=== PATIENT | male | born 1950 | race African-American/Black ===

== ENCOUNTER 2016-12-09 11:24 | Emergency (ER) | payer OTHER, MEDICARE ==
[~2016-12-09] VITALS: Ht 180.3 cm; Wt 97.0 kg
[~2016-12-09 11:24] MED LIST: ENTE325T PO; FLUT1SPR5 EACH NARE; LOVA10TA PO; MORP1TAB26 PO; OXYC15TA PO; TAMS5CAP PO; VIAG50TA PO
[2016-12-09 11:26] VITALS: BP 112/70; PULSE 86; RESP 16; TEMP 98.7; O2SAT 99
--- NOTE | 2016-12-09 11:44 | PD ---
Physical Exam Time Seen by Provider: 11:41 Narrative 66yo M sent by Dr. Henley for "blood work." Patient says hes been feeling week and fatigued for one week. Does not know what type of blood work he was sent for. Patient seen in triage. Awaiting bed placement. VS reviewed. Data Data Last Documented VS Vital Signs Date Time Temp Pulse Resp B/P Pulse Ox O2 Delivery O2 Flow Rate FiO2 12/09/16 11:26 98.7 86 16 112/70 99 Room Air MDM Supervised Visit with KRISTIE: Stacey Voss Dec 09, 2016 11:44
[2016-12-09 12:08] VITALS: BP 120/67; PULSE 78; RESP 19; TEMP 98.4; O2SAT 98
--- NOTE | 2016-12-09 12:22 | PD ---
HPI Chief Complaint: General Weakness Time Seen by Provider: 12:21 Travel History International Travel<30 days: No Contact w/Intl Traveler<30days: No Traveled to known affect area: No History of Present Illness HPI 66-year-old male with no significant medical history presents to emergency department for evaluation of generalized weakness. 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 He states that he did not maintain hydration and after a full day's work he was not sweating anymore. He states since his stay he has been weak and not feeling right. He tells me that his primary care provider Dr. Anders, sent him to the emergency department for evaluation. Patient denies any pain. He has not been recently ill. No fever or chills. States his urine has been darker and output has been decreased. Denies any bowel changes. He has no other symptoms to report at this time. [facility] Past Medical History GERD: Yes Tetanus Vaccination: Unknown Past Surgical History Other Surgery: Yes (fissures) Social History Alcohol Use: No Tobacco Use: Yes (vape) Substance Use: No Allergies-Medications (Allergen,Severity, Reaction): Coded Allergies: Iodine (Verified Allergy, Intermediate, Hives, 12/09/16) Celebrex (Verified Adverse Reaction, Intermediate, HIVES, 12/09/16) Vioxx (Verified Adverse Reaction, Intermediate, RASH, 12/09/16) Uncoded Allergies: CTA Dye (Allergy, Intermediate, Rash, swelling, 02/02/14) Happened at [place] with CTA Dye. 01/27 Reported Meds & Prescriptions Reported Meds & Active Scripts Active Walker/Adult/Folding (Device) 1 Mis Mis 1 Ea .ROUTE DIRECTED Viagra (Sildenafil Citrate) 50 Mg Tab 50 Mg PO DAILY PRN Flomax (Tamsulosin HCl) 0.4 Mg Cap 0.4 Mg PO HS Lovastatin 10 Mg Tab 10 Mg PO DAILY Reported Morphine ER (Morphine Sulfate) 60 Mg Tab 60 Mg PO DAILY Oxycodone (Oxycodone HCl) 15 Mg Tab 15 Mg PO Q8HR Flonase Nasal Cotton (Fluticasone Nasal Cotton) 50 Mcg/Act Cotton 50 Mcg EACH NARE BID Enteric Coated Aspirin (Aspirin) 325 Mg Tabdr 325 Mg PO DAILY Review of Systems Except as stated in HPI: all other systems reviewed are Neg Physical Exam Narrative GENERAL: Well-nourished male patient, in no acute distress. SKIN: Focused skin assessment warm/dry. HEAD: Atraumatic. Normocephalic. EYES: Pupils equal and round. No scleral icterus. No injection or drainage. ENT: No nasal bleeding or discharge. Mucous membranes pink and moist. NECK: Trachea midline. No JVD. CARDIOVASCULAR: Regular rate and rhythm. No murmur appreciated. RESPIRATORY: No accessory muscle use. Clear to auscultation. Breath sounds equal bilaterally. GASTROINTESTINAL: Abdomen soft, non-tender, nondistended. Hepatic and splenic margins not palpable. MUSCULOSKELETAL: No obvious deformities. No clubbing. No cyanosis. No edema. NEUROLOGICAL: Awake and alert. No obvious cranial nerve deficits. Motor grossly within normal limits. Normal speech. PSYCHIATRIC: Appropriate mood and affect; insight and judgment normal. Data Data Last Documented VS Vital Signs Date Time Temp Pulse Resp B/P Pulse Ox O2 Delivery O2 Flow Rate FiO2 12/09/16 18:30 86 18 114/62 98 12/09/16 12:30 Room Air 12/09/16 12:08 98.4 Orders Electrocardiogram (12/09/16 12:23) Basic Metabolic Panel (Bmp) (12/09/16 12:23) Complete Blood Count With Diff (12/09/16 12:23) Magnesium (Mg) (12/09/16 12:23) Act Partial Throm Time (Ptt) (12/09/16 12:23) Prothrombin Time / Inr (Pt) (12/09/16 12:23) Urinalysis - C+S If Indicated (12/09/16 12:23) Chest, Single Ap (12/09/16 12:23) Ecg Monitoring (12/09/16 12:23) Iv Access Insert/Monitor (12/09/16 12:23) Oximetry (12/09/16 12:23) Sodium Chloride 0.9% Flush (Ns Flush) (12/09/16 12:30) Sodium Chlor 0.9% 1000 Ml Inj (Ns 1000 M (12/09/16 12:23) Creatine Kinase (Cpk) (12/09/16 12:26) Sodium Chlor 0.9% 1000 Ml Inj (Ns 1000 M (12/09/16 16:00) Orthostatic Vital Signs (12/09/16 16:35) Ct Brain W/O Iv Contrast(Rout) (12/09/16 ) Labs Laboratory Tests Test 12/09/16 12/09/16 12:35 15:10 White Blood Count 4.5 TH/MM3 Red Blood Count 5.40 MIL/MM3 Hemoglobin 15.3 GM/DL Hematocrit 43.3 % Mean Corpuscular Volume 80.3 FL Mean Corpuscular Hemoglobin 28.3 PG Mean Corpuscular Hemoglobin 35.2 % Concent Red Cell Distribution Width 14.5 % Platelet Count 161 TH/MM3 Mean Platelet Volume 10.0 FL Neutrophils (%) (Auto) 72.6 % Lymphocytes (%) (Auto) 18.4 % Monocytes (%) (Auto) 8.2 % Eosinophils (%) (Auto) 0.2 % Basophils (%) (Auto) 0.6 % Neutrophils # (Auto) 3.2 TH/MM3 Lymphocytes # (Auto) 0.8 TH/MM3 Monocytes # (Auto) 0.4 TH/MM3 Eosinophils # (Auto) 0.0 TH/MM3 Basophils # (Auto) 0.0 TH/MM3 CBC Comment DIFF FINAL Differential Comment Prothrombin Time 11.7 SEC Prothromb Time International 1.1 RATIO Ratio Activated Partial 29.1 SEC Thromboplast Time Sodium Level 137 MEQ/L Potassium Level 4.0 MEQ/L Chloride Level 102 MEQ/L Carbon Dioxide Level 25.1 MEQ/L Anion Gap 10 MEQ/L Blood Urea Nitrogen 15 MG/DL Creatinine 1.49 MG/DL Estimat Glomerular Filtration 57 ML/MIN Rate Random Glucose 91 MG/DL Calcium Level 8.8 MG/DL Magnesium Level 2.7 MG/DL Total Creatine Kinase 165 U/L Urine Color YELLOW Urine Turbidity HAZY Urine pH 5.5 Urine Specific [place] 1.025 Urine Protein 30 mg/dL Urine Glucose (UA) NEG mg/dL Urine Ketones TRACE mg/dL Urine Occult Blood TRACE Urine Nitrite NEG Urine Bilirubin NEG Urine Urobilinogen 4.0 MG/DL Urine Leukocyte Esterase NEG Urine RBC 1 /hpf Urine WBC 2 /hpf Urine Bacteria RARE /hpf Urine Hyaline Casts 4 /lpf Urine Mucus MANY /lpf Microscopic Urinalysis Comment CULT NOT INDICATED MDM Medical Decision Making Medical Screen Exam Complete: Yes Emergency Medical Condition: Yes Medical Record Reviewed: Yes Differential Diagnosis Dehydration versus electrolyte abnormality versus viral syndrome versus UTI versus renal failure Narrative Course 66-year-old male sent to the emergency department for evaluation of generalized weakness. Patient appears without distress. His vital signs are stable. Laboratory Tests Test 12/09/16 12/09/16 12:35 15:10 White Blood Count 4.5 TH/MM3 Red Blood Count 5.40 MIL/MM3 Hemoglobin 15.3 GM/DL Hematocrit 43.3 % Mean Corpuscular Volume 80.3 FL Mean Corpuscular Hemoglobin 28.3 PG Mean Corpuscular Hemoglobin 35.2 % Concent Red Cell Distribution Width 14.5 % Platelet Count 161 TH/MM3 Mean Platelet Volume 10.0 FL Neutrophils (%) (Auto) 72.6 % Lymphocytes (%) (Auto) 18.4 % Monocytes (%) (Auto) 8.2 % Eosinophils (%) (Auto) 0.2 % Basophils (%) (Auto) 0.6 % Neutrophils # (Auto) 3.2 TH/MM3 Lymphocytes # (Auto) 0.8 TH/MM3 Monocytes # (Auto) 0.4 TH/MM3 Eosinophils # (Auto) 0.0 TH/MM3 Basophils # (Auto) 0.0 TH/MM3 CBC Comment DIFF FINAL Differential Comment Prothrombin Time 11.7 SEC Prothromb Time International 1.1 RATIO Ratio Activated Partial 29.1 SEC Thromboplast Time Sodium Level 137 MEQ/L Potassium Level 4.0 MEQ/L Chloride Level 102 MEQ/L Carbon Dioxide Level 25.1 MEQ/L Anion Gap 10 MEQ/L Blood Urea Nitrogen 15 MG/DL Creatinine 1.49 MG/DL Estimat Glomerular Filtration 57 ML/MIN Rate Random Glucose 91 MG/DL Calcium Level 8.8 MG/DL Magnesium Level 2.7 MG/DL Total Creatine Kinase 165 U/L Urine Color YELLOW Urine Turbidity HAZY Urine pH 5.5 Urine Specific [place] 1.025 Urine Protein 30 mg/dL Urine Glucose (UA) NEG mg/dL Urine Ketones TRACE mg/dL Urine Occult Blood TRACE Urine Nitrite NEG Urine Bilirubin NEG Urine Urobilinogen 4.0 MG/DL Urine Leukocyte Esterase NEG Urine RBC 1 /hpf Urine WBC 2 /hpf Urine Bacteria RARE /hpf Urine Hyaline Casts 4 /lpf Urine Mucus MANY /lpf Microscopic Urinalysis Comment CULT NOT INDICATED I contacted Dr. Anders and discussed the findings with him. He states that the reason he sent the patient here was because he had an unsteady gait in his office. Orthostatic vital signs are completed here and are normal. Patient ambulates with nursing staff with an unsteady start but was able to maintain a steady gait with minimal assistance. CT imaging the brain is ordered with no acute intracranial abnormality. I discussed the patient with my attending physician who agrees that further workup can be completed outpatient and he can be discharged home but suggest ordering a walker. This is discussed with the patient and he is very grateful to be getting to go home and agrees with plan of care to contact Dr. Ponce for follow-up and to return immediately with any acute worsening of symptoms. Diagnosis Primary Impression: Weakness Additional Impressions: Unsteady gait History of heat exhaustion Referrals: Adi Anders Jr., MD call for appointment Patient Instructions: Dehydration (ED), General Instructions, Heat Exhaustion ( ED) Additional Instructions: Follow-up with Dr. Anders . Call his office tomorrow to schedule an appointment Maintain adequate oral hydration Ambulate with walker assistance as needed/ until cleared by your PCP Return to ED with acute worsening of symptoms Scripts Walker/Adult/Folding 1 Mis Mis #1 EA .ROUTE DIRECTED Ref 0 Prov:Pat Yoder 12/09/16 Disposition: 01 DISCHARGE HOME Condition: Stable Pat Yoder Dec 09, 2016 12:22
[2016-12-09] MEDS ORDERED: SODIUM CHLOR 0.9% 1000 ML INJ 1,000 ML IV ONE ×2 (12:23→16:00)
[2016-12-09 12:30] VITALS: BP 120/67; PULSE 87; RESP 18; O2SAT 97
[2016-12-09] MEDS ORDERED: SODIUM CHLORIDE 0.9% FLUSH 10 ML FLUSH IVF PRN (12:30)
[2016-12-09 12:49] LABS: AUTOMATED NEUTROPHIL # 3.2 TH/MM3 (1.8-7.7); BASOPHIL % 0.6 % (0.0-2.0); EOSINOPHIL % 0.2 % (0.0-4.0); HEMATOCRIT 43.3 % (39.0-51.0); HEMO FLAGS DIFF FINAL; LYMPH % 18.4 % (9.0-44.0); LYMPHOCYTE # 0.8 TH/MM3 (1.0-4.8); MEAN CELL VOLUME 80.3 FL (80.0-100.0); MEAN CORPUSCULAR HEMOGLOBIN 28.3 PG (27.0-34.0); MEAN CORPUSCULAR HGB CONC 35.2 % (32.0-36.0); MONO % 8.2 % (0.0-8.0); NEUT % 72.6 % (16.0-70.0); PLATELET COUNT 161 TH/MM3 (150-450); RED CELL DISTRIBUTION WIDTH 14.5 % (11.6-17.2); WHITE BLOOD COUNT 4.5 TH/MM3 (4.0-11.0)
[2016-12-09 12:55] LABS: APTT (PATIENT) 29.1 SEC (24.3-30.1); INTERNATIONAL NORMALIZED RATIO 1.1 RATIO; PROTHROMBIN TIME - PATIENT 11.7 SEC (9.8-11.6)
--- NOTE | 2016-12-09 13:15 | RADRPT ---
EXAM DATE/TIME: 12/09/2016 12:34 [facility] COMPARISON: CHEST SINGLE AP, January 29, 2014, 3:28. INDICATIONS : Dizziness for 5 days. MEDICAL HISTORY : None. SURGICAL HISTORY : None. ENCOUNTER: Initial ACUITY: 4 - 6 days PAIN SCORE: 0/10 LOCATION: Bilateral chest FINDINGS: A single view of the chest demonstrates the lungs to be symmetrically aerated without evidence of mas s, infiltrate or effusion. The cardiomediastinal contours are unremarkable. Osseous structures are intact. CONCLUSION: No acute disease. David Flowers MD FACR on December 09, 2016 at 13:12 Board Certified Radiologist. This report was verified electronically.
[2016-12-09 13:31] LABS: BICARBONATE 25.1 MEQ/L (21.0-32.0); MAGNESIUM 2.7 MG/DL (1.5-2.5)
[2016-12-09 15:35] LABS: BACTERIA, URINE RARE /hpf; BLOOD, URINE TRACE (NEG); COMMENT (UR) CULT NOT INDICATED; CULTURE IF INDICATED CULT NOT INDICATED; GLUCOSE,URINE NEG (NEG); HYALINE CAST, URINE 4 /lpf (RARE); KETONE, URINE TRACE mg/dL (NEG); MUCUS URINE MANY /lpf (OCC); NITRITE,URINE NEG (NEG); PH, URINE 5.5 (5.0-8.5); URINE COLOR YELLOW (YELLW/STRAW)
[2016-12-09 16:00] VITALS: BP 107/58; PULSE 80; RESP 18; O2SAT 100
[2016-12-09 16:56] VITALS: BP_SYST 116; BP_SYST 119; BP_SYST 123; BP_DIAS 59; BP_DIAS 62; BP_DIAS 64
--- NOTE | 2016-12-09 17:29 | RADRPT ---
EXAM DATE/TIME: 12/09/2016 17:12 [facility] COMPARISON: CT BRAIN W/O CONTRAST, January 29, 2014, 2:34. INDICATIONS : Generalized weakness. RADIATION DOSE: 56.35 CTDIvol (mGy) MEDICAL HISTORY : None SURGICAL HISTORY : None. ENCOUNTER: Initial ACUITY: 1 day PAIN SCALE: 0/10 LOCATION: cranial TECHNIQUE: Multiple contiguous axial images were obtained of the head. Using automated exposure control and adj ustment of the mA and/or kV according to patient size, radiation dose was kept as low as reasonably a chievable to obtain optimal diagnostic quality images. DICOM format image data is available electro nically for review and comparison. FINDINGS: CEREBRUM: The ventricles are normal for age. No evidence of midline shift, mass lesion, hemorrhage or acute in farction. No extra-axial fluid collections are seen. POSTERIOR FOSSA: The cerebellum and brainstem are intact. The 4th ventricle is midline. The cerebellopontine angle i s unremarkable. EXTRACRANIAL: The visualized portion of the orbits is intact. SKULL: The calvaria is intact. No evidence of skull fracture. CONCLUSION: Negative for acute process. David Flowers MD FACR on December 09, 2016 at 17:26 Board Certified Radiologist. This report was verified electronically.
[2016-12-09] MEDS ORDERED: WALKER/ADULT/FO1 MIS (17:41)
[2016-12-09 18:30] VITALS: BP 114/62
--- NOTE | 2016-12-10 17:07 | EKG ---
Date Performed: 12/09/2016 Time Performed: 13:03:42 PTAGE: 66 years EKG: Sinus rhythm NORMAL ECG PREVIOUS TRACING : 01/29/2014 02.51 Compared to prior tracing no significant change DOCTOR: Say Loyd Interpretating Date/Time 12/10/2016 17:07:03
== END 2016-12-09 18:32 | disposition home or self-care (01) ==
LOC: NEPC 11:24
DX: R53.1 Weakness (principal); R26.81 Unsteadiness on feet; K21.9 Gastro-esophageal reflux disease without esophagitis; Z79.899 Other long term (current) drug therapy
CPT/HCPCS: 70450; 71010; 80048; 81001; 82550; 83735; 85025; 85610; 85730; 93005; 96360; 96361; 99285; J7030